=== PATIENT | male | born 1995 | race Caucasian/White ===

== ENCOUNTER 2020-05-09 10:59 | Emergency (ER) | payer MEDICAID, OTHER ==
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
[2020-05-09 13:20] LABS: Basophils % (Auto) 0.5 % (0.0-1.8); Eosinophils # (Auto) 0.1 K/mm3 (0.0-0.4); Eosinophils % (Auto) 0.7 % (0.0-4.3); Hematocrit 49.3 % (35.5-45.6); Hemoglobin 16.8 gm/dl (11.8-15.2); Lymphocytes % (Auto) 19.9 % (13.4-35.0); Mean Corpuscular HGB Conc 34 % (32-34); Mean Corpuscular Volume 88 fl (84-94); Monocytes # (Auto) 0.5 K/mm3 (0.0-0.8); Monocytes % (Auto) 4.6 % (0.0-7.3); Platelet Count 343 K/mm3 (140-440); Red Blood Count 5.63 M/mm3 (3.65-5.03); Red Cell Distribution Width 14.2 % (13.2-15.2)
[2020-05-09 13:29] LABS: Alanine Aminotransferase 41 units/L (7-56); Albumin 4.8 g/dL (3.9-5); Blood Urea Nitrogen 13 mg/dL (9-20); Calcium 9.6 mg/dL (8.4-10.2); Hemolysis Index 8
[2020-05-09 13:30] LABS: BUN/Creatinine Ratio 19
[2020-05-09 13:32] LABS: INR 0.92 (0.87-1.13); Partial Thromboplastin Time 31.8 Sec. (24.2-36.6)
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
[2020-05-09 17:51] VITALS: BP 136/74
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
== END 2020-05-09 13:00 | disposition home or self-care (01) ==
LOC: ED 10:59
DX: S13.4XXA Sprain of ligaments of cervical spine, initial encounter (principal); S20.219A Contusion of unspecified front wall of thorax, initial encounter; S30.1XXA Contusion of abdominal wall, initial encounter; S70.02XA Contusion of left hip, initial encounter; Z79.899 Other long term (current) drug therapy; V49.49XA Driver injured in collision with other motor vehicles in traffic accident, initial encounter; Y93.89 Activity, other specified; Y92.410 Unspecified street and highway as the place of occurrence of the external cause; Y99.8 Other external cause status
CPT/HCPCS: 36415; 70450; 71260; 72125; 73552; 74177; 80053; 85025; 85610; 85730; 86850; 86900; 86901; 99285; Q9967